=== PATIENT | female | born 1990 ===

== ENCOUNTER 2017-10-01 15:13 | Inpatient (IN) ==
[2017-10-04 12:18] VITALS: BP 120/66
== END 2017-10-04 13:40 | disposition home or self-care (01) | DRG 560 ==
LOC: N.LD 15:15 → N.LDOUT 16:11 → N.LD 16:18 → N.OB 10-03 00:11
PROVIDERS: ADMIT Obstetrics & Gynecology; ATTEND Obstetrics & Gynecology

== ENCOUNTER 2019-09-05 20:43 | Observation (INO) ==
[2019-09-05] MEDS ORDERED: ONDANSETRON 4 MG/2 ML VIAL IV STA (21:04)
[2019-09-05 21:30] LABS: Basophils % 0.2 % (0.0-0.8); Eosinophils # 0.3 10*3/uL (0.0-0.87); Hematocrit 35.4 VOL% (35.7-47.0); Hemoglobin 11.2 GM/DL (12.0-16.0); Immature Granulocytes % 0.6 %; Immature Granulocytes Absolute 0.08 #; Lymphocytes # 2.4 10*3/uL (1.4-4.0); Lymphocytes % 19.4 % (21.3-54.2); Mean Corpuscular HGB Conc 31.6 GM/DL (32-36); Mean Corpuscular Volume 89.8 FL (87-102); Mean Platelet Volume 10.5 FL (9.6-12.0); Monocytes % 5.4 % (1.7-12.7); Neutrophils % 72.4 % (38.7-73.9); Platelet Count 267 T/CUMM (130-400); Red Blood Count 3.94 MC/CUMM (3.8-5.5); Red Cell Distribution Width 13.9 % (9.3-17.3); White Blood Count 12.5 T/CUMM (4-12)
[2019-09-05 21:53] LABS: Apearance,Urine CLEAR (Clear); Bilirubin,Urine Negative (Negative); Blood, Urine Large mg/dL (Negative); Glucose,Urine (UA) Negative (Negative); Ketones,Urine Negative (Negative); Mucus,Urine Occasional /LPF (Occasional); Nitrite,Urine Negative (Negative); Protein,Urine Negative; RBC,Urine 3 /HPF (0-4); Squamous Epithelial Cell,Urine Occasional /HPF (0-10); Urine Color Yellow (Yellow); Urine Specific Gravity 1.024 (1.001-1.035); Urine Urobilinogen < 2.0 EU/DL (0.2-1.0); WBC,Urine 2 /HPF (0-6)
[2019-09-05 22:03] LABS: Alanine Aminotransferase 57 U/L (13-56); Albumin 2.8 G/DL (3.4-5.0); Alkaline Phosphatase 73 U/L (45-117); Aspartate Amino Transferase 33 U/L (0-37); Bilirubin,Total < 0.39 MG/DL (0.2-1.0); Blood Urea Nitrogen 18 MG/DL (7-18); Calcium 8.3 MG/DL (8.5-10.1); Estimated Glom Filtration Rate 104 ML/MIN; Glucose 96 MG/DL (74-106); Osmolality,Calculated 274.8 MOS/KG (273-304); Total Protein 7.2 G/DL (6.4-8.3)
[2019-09-05] MEDS ORDERED: ceFAZolin 3,000 MG in SYRINGE 1 EACH IV STA (22:52)
[2019-09-05] MEDS ORDERED: TISSUE ADHESIVE 1 EACH APPLICATOR TOP ONE (22:53)
[2019-09-05] MEDS ORDERED: LIDOCAINE 1% 20 ML VIAL ONE (22:53)
[2019-09-05] MEDS ORDERED: MEPERIDINE 25 MG/1 ML VIAL IV PRN (23:54)
[2019-09-05] MEDS ORDERED: HYDROmorphone 2 MG/1 ML VIAL IV PRN (23:54)
[2019-09-05] MEDS ORDERED: PROMETHAZINE INJ 25 MG in SODIUM CHLORIDE 0.9% 50 ML IV PRN (23:54)
[2019-09-05] MEDS ORDERED: ONDANSETRON 4 MG/2 ML VIAL IV PRN (23:54)
[2019-09-05] MEDS ORDERED: diphenhydrAMINE 50 MG/1 ML VIAL IV PRN (23:54)
[2019-09-06] MEDS ORDERED: TISSUE ADHESIVE 1 EACH APPLICATOR TOP ONE ×2 (00:38→06:58)
[2019-09-06] MEDS ORDERED: fentaNYL 100 MCG/2 ML VIAL ONE (00:59)
[2019-09-06] MEDS ORDERED: propofoL 200 MG/20 ML VIAL IV ONE (00:59)
[2019-09-06] MEDS ORDERED: ONDANSETRON 4 MG/2 ML VIAL ONE (00:59)
[2019-09-06] MEDS ORDERED: ACETAMINOPHEN 1,000 MG/100 ML VIAL IV ONE (00:59)
[2019-09-06] MEDS ORDERED: LIDOCAINE 2% 5 ML VIAL ONE (00:59)
[2019-09-06] MEDS ORDERED: KETOROLAC 30 MG/1 ML VIAL ONE (00:59)
[2019-09-06] MEDS ORDERED: SEVOFLURANE 1 UNIT/15 MINUTE INH ONE (00:59)
[2019-09-06] MEDS ORDERED: LACTATED RINGERS 1,000 ML IV ONE (01:00)
[2019-09-06] MEDS ORDERED: ROCURONIUM 100 MG/10 ML VIAL IV ONE (01:00)
[2019-09-06] MEDS ORDERED: SUCCINYLCHOLINE 200 MG/10 ML VIAL ONE (01:00)
[2019-09-06] MEDS ORDERED: BISACODYL 10 MG SUPP RECTAL PRN (01:32)
[2019-09-06] MEDS ORDERED: IBUPROFEN 800 MG TABLET PO PRN (01:32)
[2019-09-06] MEDS ORDERED: ONDANSETRON 4 MG/2 ML VIAL IV PRN (01:32)
[2019-09-06] MEDS ORDERED: LACTATED RINGERS 1,000 ML IV SCH (01:32)
[2019-09-06] MEDS ORDERED: BENZOCAINE/MENTHOL LOZENGE 18/BOX PO PRN (01:32)
[2019-09-06] MEDS ORDERED: MAGNESIUM HYDROXIDE SUSP 30 ML UDCUP PO PRN (01:32)
[2019-09-06] MEDS ORDERED: ACETAMINOPHEN 325 MG TABLET PO PRN (01:32)
[2019-09-06] MEDS: KETOROLAC 30 MG/1 ML VIAL IV SCH ×2 (01:40→07:41)
[2019-09-06 08:38] VITALS: BP 103/49
== END 2019-09-06 10:25 | disposition home or self-care (01) ==
LOC: EDUNIT# → EDBD → N.EDINP 20:43 → N.ED 20:43 → N.EDINP 23:08 → N.OB 09-06 01:28
PROVIDERS: ADMIT Obstetrics & Gynecology; ATTEND Obstetrics & Gynecology

== ENCOUNTER 2020-02-26 12:01 | Observation (INO) ==
[2020-02-26] MEDS ORDERED: SODIUM CHLORIDE 0.9% 500 ML IV STA (12:20)
[2020-02-26] MEDS ORDERED: METHYLENE BLUE 10 ML VIAL IV ONE (13:18)
[2020-02-26] MEDS ORDERED: fentaNYL 100 MCG/2 ML VIAL ONE (13:26)
[2020-02-26] MEDS ORDERED: MIDAZOLAM 2 MG/2 ML VIAL ONE (13:27)
[2020-02-26] MEDS ORDERED: PROMETHAZINE INJ 25 MG in SODIUM CHLORIDE 0.9% 50 ML IV PRN (14:10)
[2020-02-26] MEDS ORDERED: ONDANSETRON 4 MG/2 ML VIAL IV PRN ×3 (14:10→15:33)
[2020-02-26] MEDS ORDERED: diphenhydrAMINE 50 MG/1 ML VIAL IV PRN (14:10)
[2020-02-26] MEDS ORDERED: MEPERIDINE 25 MG/1 ML VIAL IV PRN ×2 (14:10→15:33)
[2020-02-26] MEDS ORDERED: LIDOCAINE 2% 5 ML VIAL ONE (14:32)
[2020-02-26] MEDS ORDERED: SEVOFLURANE 1 UNIT/15 MINUTE INH ONE ×4 (14:32→15:22)
[2020-02-26] MEDS ORDERED: DEXAMETHASONE 4 MG/1 ML VIAL ONE (14:32)
[2020-02-26] MEDS ORDERED: ACETAMINOPHEN 1,000 MG/100 ML VIAL IV ONE (14:32)
[2020-02-26] MEDS ORDERED: ROCURONIUM 50 MG/5 ML VIAL IV ONE (14:32)
[2020-02-26] MEDS ORDERED: LACTATED RINGERS 1,000 ML IV ONE (14:32)
[2020-02-26] MEDS ORDERED: ONDANSETRON 4 MG/2 ML VIAL ONE ×2 (14:32→15:28)
[2020-02-26] MEDS ORDERED: propofoL 200 MG/20 ML VIAL IV ONE (14:32)
[2020-02-26] MEDS ORDERED: GLYCOPYRROLATE 0.4 MG/2 ML VIAL ONE (14:53)
[2020-02-26] MEDS ORDERED: NEOSTIGMINE 10 MG/10 ML VIAL ONE (14:53)
[2020-02-26] MEDS ORDERED: KETOROLAC 30 MG/1 ML VIAL ONE (15:22)
[2020-02-26] MEDS ORDERED: BISACODYL 10 MG SUPP RECTAL PRN (15:25)
[2020-02-26] MEDS ORDERED: ACETAMINOPHEN 325 MG TABLET PO PRN (15:25)
[2020-02-26] MEDS ORDERED: IBUPROFEN 800 MG TABLET PO PRN (15:25)
[2020-02-26] MEDS ORDERED: BENZOCAINE/MENTHOL LOZENGE 18/BOX PO PRN (15:25)
[2020-02-26] MEDS ORDERED: DOCUSATE SODIUM 100 MG CAPSULE PO PRN (15:25)
[2020-02-26] MEDS ORDERED: MAGNESIUM HYDROXIDE SUSP 30 ML UDCUP PO PRN (15:25)
[2020-02-26] MEDS ORDERED: MEPERIDINE 25 MG/1 ML VIAL ONE (15:28)
[2020-02-26] MEDS: LACTATED RINGERS 1,000 ML IV SCH ×2 (15:32→19:35)
[2020-02-26] MEDS ORDERED: INFLUENZA VIRUS VACCINE 0.5 ML SYRINGE IM ONE (18:56)
[2020-02-26] MEDS: KETOROLAC 30 MG/1 ML VIAL IV PRN (21:35)
[2020-02-26] MEDS: ceFAZolin 1,000 MG in SYRINGE 1 EACH IV SCH (21:40)
[2020-02-27] MEDS: KETOROLAC 30 MG/1 ML VIAL IV PRN (03:31)
[2020-02-27] MEDS: ceFAZolin 1,000 MG in SYRINGE 1 EACH IV SCH (05:08)
[2020-02-27 05:33] LABS: Basophils % 0.1 % (0.0-0.8); Hematocrit 30.7 VOL% (35.7-47.0); Hemoglobin 10.1 GM/DL (12.0-16.0); Immature Granulocytes % 0.4 %; Immature Granulocytes Absolute 0.04 #; Lymphocytes # 1.7 10*3/uL (1.4-4.0); Lymphocytes % 15.3 % (21.3-54.2); Mean Corpuscular HGB Conc 32.9 GM/DL (32-36); Mean Corpuscular Volume 88.5 FL (87-102); Mean Platelet Volume 10.7 FL (9.6-12.0); Monocytes % 4.5 % (1.7-12.7); Neutrophils % 79.7 % (38.7-73.9); Platelet Count 226 T/CUMM (130-400); Red Blood Count 3.47 MC/CUMM (3.8-5.5); Red Cell Distribution Width 13.4 % (9.3-17.3)
[2020-02-27 08:13] VITALS: BP 105/62
== END 2020-02-27 10:25 | disposition home or self-care (01) ==
LOC: EDUNIT# → EDBD → N.OB 12:01 → N.ED 12:01 → EDSTATUS 14:30 → N.ED 15:03
PROVIDERS: ADMIT Obstetrics & Gynecology; ATTEND Obstetrics & Gynecology